=== PATIENT | male | born 1950 | race Caucasian/White ===

== ENCOUNTER → 2023-06-14 11:26 | Outpatient (BNVA) | payer MEDICARE, SELFPAY | PROVIDERS: PCP Legal Medicine; Referring Provider Legal Medicine; Visit Provider Podiatrist | DX: G60.3 Idiopathic progressive neuropathy; L60.3 Nail dystrophy; L84 Corns and callosities; B35.1 Tinea unguium; I87.2 Venous insufficiency (chronic) (peripheral); I73.9 Peripheral vascular disease, unspecified; B35.3 Tinea pedis; M79.674 Pain in right toe(s); M79.675 Pain in left toe(s); R09.89 Other specified symptoms and signs involving the circulatory and respiratory systems; L65.9 Nonscarring hair loss, unspecified; L60.8 Other nail disorders; R20.8 Other disturbances of skin sensation | CPT/HCPCS: 11721; 17110 ==

== ENCOUNTER 2023-08-04 11:52 | Outpatient (CLI) | payer MEDICARE, SELFPAY ==
--- NOTE | 2023-08-04 08:19 | DI.RAD_ITS ---
Exam(s) XR HIP PELVIS ADULT BL EXAM: XR HIP PELVIS ADULT BL CLINICAL HISTORY: left hip pain. TECHNIQUE: 2D digital imaging was performed. Four images were obtained. AP pelvis and lateral views were obtained. COMPARISON: CR RT HIP COMPLETE AP PELVIS from 08/27/2016 FINDINGS: BONES: There are stable post operative changes of a right total hip replacement present. No fracture or dislocation. JOINTS: The orthopedic hardware is in good position. No evidence of hardware loosening. There are m arked arthritic changes seen in the left hip with joint space narrowing and osteophytes present. The re are degenerative changes seen at the sacroiliac joints. 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 SOFT TISSUE: Vascular calcifications are present. IMPRESSION: 1. Stable right total hip replacement. 2. Marked arthrosis of the left hip. DATA REPOSITORY: RADIATION DOSE DELIVERED:
== END 2023-08-04 11:53 | disposition home or self-care (01) ==
LOC: DIORS 11:52
PROVIDERS: PCP Legal Medicine; Referring Provider Legal Medicine; Visit Provider Student in an Organized Health Care Education/Training Program
DX: M16.12 Unilateral primary osteoarthritis, left hip (principal); R00.1 Bradycardia, unspecified
CPT/HCPCS: 73521; 99215

== ENCOUNTER → 2023-10-04 11:02 | Outpatient (BNVA) | payer MEDICARE, SELFPAY | PROVIDERS: PCP Legal Medicine; Referring Provider Legal Medicine; Visit Provider Podiatrist | DX: M79.671 Pain in right foot (principal); G60.3 Idiopathic progressive neuropathy; L60.3 Nail dystrophy; L84 Corns and callosities; B35.1 Tinea unguium; I87.2 Venous insufficiency (chronic) (peripheral); I73.9 Peripheral vascular disease, unspecified; B35.3 Tinea pedis; M79.672 Pain in left foot | CPT/HCPCS: 11721; 17110 ==

== ENCOUNTER → 2024-01-31 10:48 | Outpatient (BNVA) | payer MEDICARE, SELFPAY | PROVIDERS: PCP Legal Medicine; Referring Provider Legal Medicine; Visit Provider Podiatrist | DX: I73.89 Other specified peripheral vascular diseases (principal); M79.672 Pain in left foot; M79.671 Pain in right foot; L60.3 Nail dystrophy; L84 Corns and callosities; B35.1 Tinea unguium; B35.3 Tinea pedis; R09.89 Other specified symptoms and signs involving the circulatory and respiratory systems; L65.9 Nonscarring hair loss, unspecified | CPT/HCPCS: 11721; 17110 ==

== ENCOUNTER → 2024-06-05 09:28 | Outpatient (BNVA) | payer MEDICARE, SELFPAY | PROVIDERS: PCP Legal Medicine; Referring Provider Legal Medicine; Visit Provider Podiatrist | DX: L60.3 Nail dystrophy (principal); B35.1 Tinea unguium; L84 Corns and callosities; G60.3 Idiopathic progressive neuropathy; I73.89 Other specified peripheral vascular diseases; B35.3 Tinea pedis; I87.2 Venous insufficiency (chronic) (peripheral); M79.671 Pain in right foot; M79.672 Pain in left foot; R09.89 Other specified symptoms and signs involving the circulatory and respiratory systems; L65.9 Nonscarring hair loss, unspecified; L60.8 Other nail disorders; L60.2 Onychogryphosis; R23.8 Other skin changes | CPT/HCPCS: 11721; 17110 ==

== ENCOUNTER → 2024-10-03 09:29 | Outpatient (BNVA) | payer MEDICARE, SELFPAY | PROVIDERS: PCP Legal Medicine; Referring Provider Legal Medicine; Visit Provider Podiatrist | DX: L60.3 Nail dystrophy (principal); M79.671 Pain in right foot; M79.672 Pain in left foot; B35.1 Tinea unguium; I87.2 Venous insufficiency (chronic) (peripheral); G60.3 Idiopathic progressive neuropathy; I73.89 Other specified peripheral vascular diseases; B35.3 Tinea pedis; R09.89 Other specified symptoms and signs involving the circulatory and respiratory systems; L65.9 Nonscarring hair loss, unspecified; L60.8 Other nail disorders; L60.2 Onychogryphosis | CPT/HCPCS: 11057; 11721 ==

== ENCOUNTER → 2025-01-01 08:36 | Outpatient (BNVA) | payer MEDICARE, SELFPAY | PROVIDERS: PCP Legal Medicine; Referring Provider Legal Medicine; Visit Provider Podiatrist | DX: M79.671 Pain in right foot (principal); M79.672 Pain in left foot; L84 Corns and callosities; L60.3 Nail dystrophy; G60.3 Idiopathic progressive neuropathy; I73.89 Other specified peripheral vascular diseases; B35.1 Tinea unguium; B35.3 Tinea pedis; I87.2 Venous insufficiency (chronic) (peripheral); Q82.8 Other specified congenital malformations of skin; R09.89 Other specified symptoms and signs involving the circulatory and respiratory systems; L65.9 Nonscarring hair loss, unspecified; L60.2 Onychogryphosis; L60.8 Other nail disorders; R23.4 Changes in skin texture | CPT/HCPCS: 11721; 17110 ==

== ENCOUNTER → 2025-03-04 08:24 | Outpatient (BNVA) | payer MEDICARE, SELFPAY | PROVIDERS: PCP Legal Medicine; Referring Provider Legal Medicine; Visit Provider Student in an Organized Health Care Education/Training Program | DX: M16.12 Unilateral primary osteoarthritis, left hip (principal); Z96.641 Presence of right artificial hip joint; M79.641 Pain in right hand; R20.2 Paresthesia of skin | CPT/HCPCS: 99214 ==

== ENCOUNTER → 2025-04-02 08:55 | Outpatient (BNVA) | payer MEDICARE, SELFPAY | PROVIDERS: PCP Legal Medicine; Referring Provider Legal Medicine; Visit Provider Podiatrist | DX: L60.3 Nail dystrophy (principal); B35.1 Tinea unguium; I73.89 Other specified peripheral vascular diseases; L84 Corns and callosities; B35.3 Tinea pedis; G60.3 Idiopathic progressive neuropathy; M79.671 Pain in right foot; M79.672 Pain in left foot; R09.89 Other specified symptoms and signs involving the circulatory and respiratory systems; L65.9 Nonscarring hair loss, unspecified; L85.8 Other specified epidermal thickening; L60.2 Onychogryphosis; L60.8 Other nail disorders; L23.4 Allergic contact dermatitis due to dyes | CPT/HCPCS: 11719; 11720 ==